=== PATIENT | female | born 1955 | race American Indian/Alaskan Native ===

== ENCOUNTER 2017-10-16 13:10 | Inpatient (IN) | payer MEDICAID ==
[2017-10-16] MEDS ORDERED: ASPIRIN PO ONE (13:38)
[2017-10-16] MEDS ORDERED: MORPHINE IV ONE (13:38)
[2017-10-16] MEDS ORDERED: ZOFRAN IV ONE (13:38)
[2017-10-16] MEDS ORDERED: NITRO-BID 2% TP ONE (13:38)
--- NOTE | 2017-10-16 13:44 | Emergency Department Report ---
HPI - General Chief Complaint: Chest Pain Time Seen by Provider: 10/16/17 13:28 - HPI HPI: Room 3 The patient is 62-year-old female presenting with a chief complaint of chest pain. The patient states yesterday she developed substernal chest pain/ pressure has been waxing and waning. Patient states she also developed numbness in her left neck shoulder and left upper extremity. The patient states her chest pressure is associated with shortness of breath and diaphoresis. Patient denies nausea/vomiting. This morning the pressure worsened. The patient gets her pain a score of 8/10. The patient last stress test occurred in 2014. 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, High Cholesterol - Surgical History Hx Cholecystectomy: Yes Hx Breast Surgery: Yes (Bilateral Mastectomy) Additional Surgical History: Bilateral Hip Replacememt, Partial Hysterectomy - Family History Family history: no significant - Social History Smoking Status: Former Smoker (none 20 years) Substance Use Type: Marijuana - Medications Home Medications: Home Medications Medication Instructions Recorded Confirmed Last Taken Type ALPRAZolam 1 mg PO TID PRN 02/10/15 02/10/15 Unknown History Aspirin BABY CHEW TAB 81 mg PO DAILY 02/10/15 02/10/15 Unknown History AtorvaSTATin 80 mg PO HS 02/10/15 02/10/15 Unknown History Bentyl 10 mg PO TID 02/10/15 02/10/15 Unknown History Lisinopril/Hydrochlorothiazide 1 tab PO DAILY 02/10/15 02/10/15 Unknown History HYDROcodone/APAP 5-325 [[place] 1 each PO Q4HR PRN #20 tablet 02/13/15 Unknown Rx 5/325] ED Review of Systems ROS: Stated complaint: CHEST PAIN Other details as noted in HPI Constitutional: diaphoresis Respiratory: shortness of breath Cardiovascular: chest pain Gastrointestinal: denies: nausea, vomiting Neurological: numbness Physical Exam - Physical Exam Physical Exam: GENERAL: The patient is well-developed well-nourished female lying on stretcher not appearing to be in acute distress. [] HEENT: Normocephalic. Atraumatic. Extraocular motions are intact. Patient has moist mucous membranes. NECK: Supple. Trachea midline CHEST/LUNGS: Clear to auscultation. There is no respiratory distress noted. HEART/CARDIOVASCULAR: Regular. There is no tachycardia. There is no gallop rub or murmur. ABDOMEN: Abdomen is soft, nontender. Patient has normal bowel sounds. There is no abdominal distention. SKIN: There is no rash. There is no edema. There is no diaphoresis. NEURO: The patient is awake, alert, and oriented. The patient is cooperative. The patient has normal speech. Patient complains of numbness in left upper extremity MUSCULOSKELETAL: There is no evidence of acute injury. ED Medical Decision Making - Lab Data Result diagrams: 10/16/17 14:20 10/16/17 14:20 Laboratory Tests 10/16/17 10/16/17 14:20 14:20 WBC 3.8 L RBC 5.08 H Hgb 13.6 Hct 42.8 MCV 84 MCH 27 L MCHC 32 RDW 15.8 H Plt Count 215 Lymph % (Auto) 47.3 H [place] % (Auto) 8.7 H Eos % (Auto) 2.1 Baso % (Auto) 1.2 Lymph # 1.8 [place] # 0.3 Eos # 0.1 Baso # 0.0 Seg Neutrophils % 40.7 Seg Neutrophils # 1.5 L Sodium 137 Potassium 4.0 Chloride 101.0 Carbon Dioxide 22 Anion Gap 18 BUN 11 Creatinine 0.7 Estimated GFR > 60 BUN/Creatinine Ratio 16 Glucose 78 Calcium 9.3 Troponin T < 0.010 - EKG Data -: EKG Interpreted by Me EKG shows normal: sinus rhythm Rate: bradycardia (51 bpm) - EKG Data When compared to previous EKG there are: previous EKG unavailable Interpretation: other (no ischemic changes seen) - Radiology Data Radiology results: image reviewed (chest x-ray) interpreted by me: Chest x-ray-no focal infiltrates, no pneumothorax - Differential Diagnosis ACS, GERD, pericarditis Critical care attestation.: If time is entered above; I have spent that time in minutes in the direct care of this critically ill patient, excluding procedure time. ED Disposition Clinical Impression: Chest pain Disposition: DC-09 OP ADMIT IP TO THIS HOSP Is pt being admited?: Yes Does the pt Need Aspirin: Yes Condition: Fair Instructions: Chest Pain (ED) Time of Disposition: 15:17 (Hospitalist notified (Dr Ace))
[2017-10-16] MEDS ORDERED: BENADRYL ONE (14:25)
[2017-10-16] MEDS ORDERED: CATAPRES ONE (14:31)
[2017-10-16] MEDS ORDERED: CATAPRES PO ONE (14:39)
[2017-10-16] MEDS ORDERED: BENADRYL IV ONE (14:39)
[2017-10-16 14:50] LABS: Basophils % (Auto) 1.2 % (0.0-1.8); Eosinophils # (Auto) 0.1 K/mm3 (0.0-0.4); Eosinophils % (Auto) 2.1 % (0.0-4.3); Hematocrit 42.8 % (30.3-42.9); Hemoglobin 13.6 gm/dl (10.1-14.3); Lymphocytes # (Auto) 1.8 K/mm3 (1.2-5.4); Lymphocytes % (Auto) 47.3 % (13.4-35.0); Mean Corpuscular HGB Conc 32 % (30-34); Mean Corpuscular Hemoglobin 27 pg (28-32); Mean Corpuscular Volume 84 fl (79-97); Monocytes # (Auto) 0.3 K/mm3 (0.0-0.8); Monocytes % (Auto) 8.7 % (0.0-7.3); Platelet Count 215 K/mm3 (140-440); Red Blood Count 5.08 M/mm3 (3.65-5.03); Red Cell Distribution Width 15.8 % (13.2-15.2)
[2017-10-16 15:09] LABS: BUN/Creatinine Ratio 16; Blood Urea Nitrogen 11 mg/dL (7-17); Calcium 9.3 mg/dL (8.4-10.2); Hemolysis Index 18
--- NOTE | 2017-10-16 15:20 | XRay Report ---
FINAL REPORT PROCEDURE: XR CHEST 1V AP TECHNIQUE: Chest radiograph anteroposterior view. CPT 67065 HISTORY: chest pain COMPARISON: No prior studies are available for comparison. FINDINGS: Heart: Normal. Mediastinum/Vessels: Normal. Lungs/Pleural space: No infiltrate, effusion, or pneumothorax. Bony thorax: No acute osseous abnormality. Life support devices: None. IMPRESSION: No radiographic evidence of acute cardiopulmonary abnormality.
--- NOTE | 2017-10-16 16:53 | History and Physical Report ---
History of Present Illness Date of examination: 10/16/17 Date of admission: 10/16/17 Chief complaint: Chief complaint: Left-sided chest pain History of present illness: ELZBIETA: 62-year-old female with history of hypertension COPD and questionable cerebrovascular accident in the past comes in for left-sided chest pain. His been going on since yesterday. Also radiate into her left neck and left upper extremity. Her chest. Pressure is associated with shortness of breath and diaphoresis. No palpitations. No nausea no vomiting. His been going on since yesterday. Evening this morning is worsened and he gives a score of 48 or 10 her last stress test was in 2014. Patient says he may have a left heart catheterization. No exacerbating or relieving factors. 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, High Cholesterol Surgical History Hx Cholecystectomy: Yes Hx Breast Surgery: Yes (Bilateral Mastectomy) Additional Surgical History: Bilateral Hip Replacememt, Partial Hysterectomy - Family History Family history: no significant - Social History Smoking Status: Former Smoker (none 20 years) Substance Use Type: Marijuana - Medications Home Medications: Home Medications Medication Instructions Recorded Confirmed Last Taken Type ALPRAZolam 1 mg PO TID PRN 02/10/15 02/10/15 Unknown History Aspirin BABY CHEW TAB 81 mg PO DAILY 02/10/15 02/10/15 Unknown History AtorvaSTATin 80 mg PO HS 02/10/15 02/10/15 Unknown History Bentyl 10 mg PO TID 02/10/15 02/10/15 Unknown History Lisinopril/Hydrochlorothiazide 1 tab PO DAILY 02/10/15 02/10/15 Unknown History HYDROcodone/APAP 5-325 [[place] 1 each PO Q4HR PRN #20 tablet 02/13/15 Unknown Rx 5/325] Review of Systems ROS: Stated complaint: CHEST PAIN Other details as noted in HPI Constitutional: diaphoresis Respiratory: shortness of breath Cardiovascular: chest pain Gastrointestinal: denies: nausea, vomiting Neurological: numbness 14 point review of systems done--- essentially negative Medications and Allergies Allergies Allergy/AdvReac Type Severity Reaction Status Date / Time cefdinir [From Omnicef] Allergy Hives Verified 02/10/15 14:49 Penicillins Allergy Unknown Verified 04/28/18 13:26 Home Medications Medication Instructions Recorded Confirmed Last Taken Type ALPRAZolam 1 mg PO TID PRN 02/10/15 10/16/17 Unknown History Aspirin BABY CHEW TAB 81 mg PO DAILY 02/10/15 10/16/17 Unknown History AtorvaSTATin 80 mg PO HS 02/10/15 10/16/17 Unknown History Bentyl 10 mg PO TID 02/10/15 10/16/17 Unknown History Lisinopril/Hydrochlorothiazide 1 tab PO DAILY 02/10/15 10/16/17 Unknown History HYDROcodone/APAP 5-325 [[place]ams 1 each PO Q4HR PRN #20 tablet 02/13/15 10/16/17 Unknown Rx 5/325] Hydrochlorothiazide [HCTZ] 25 mg PO QDAY 10/16/17 10/16/17 Unknown History Exam - Physical Exam Narrative exam: Lying in bed comfortably - Constitutional Vitals: Temp Pulse Resp BP Pulse Ox 98.2 F 53 L 12 172/82 95 10/16/17 14:38 10/16/17 15:15 10/16/17 15:15 10/16/17 15:15 10/16/17 15:15 General appearance: Present: no acute distress, well-nourished - EENT Eyes: Present: PERRL ENT: hearing intact, clear oral mucosa - Neck Neck: Present: supple, normal ROM - Respiratory Respiratory effort: normal Respiratory: bilateral: CTA - Cardiovascular Heart rate: 51 Rhythm: regular Heart Sounds: Present: S1 & S2. Absent: rub, click - Extremities Extremities: no ischemia, pulses intact, pulses symmetrical, No edema Peripheral Pulses: within normal limits - Abdominal General gastrointestinal: Present: soft, non-tender, non-distended, normal bowel sounds Female genitourinary: Present: normal - Integumentary Integumentary: Present: clear, warm, dry - Musculoskeletal Musculoskeletal: gait normal, strength equal bilaterally - Psychiatric Psychiatric: appropriate mood/affect, intact judgment & insight - Neurologic Neurologic: CNII-XII intact, moves all extremities - Allied Health Allied health notes reviewed: nursing, case management Results - Labs CBC & Chem 7: 10/16/17 14:20 10/16/17 14:20 Labs: Laboratory Last Values WBC 3.8 K/mm3 (4.5-11.0) L 10/16/17 14:20 RBC 5.08 M/mm3 (3.65-5.03) H 10/16/17 14:20 Hgb 13.6 gm/dl (10.1-14.3) 10/16/17 14:20 Hct 42.8 % (30.3-42.9) 10/16/17 14:20 MCV 84 fl (79-97) 10/16/17 14:20 MCH 27 pg (28-32) L 10/16/17 14:20 MCHC 32 % (30-34) 10/16/17 14:20 RDW 15.8 % (13.2-15.2) H 10/16/17 14:20 Plt Count 215 K/mm3 (140-440) 10/16/17 14:20 Lymph % (Auto) 47.3 % (13.4-35.0) H 10/16/17 14:20 [place] % (Auto) 8.7 % (0.0-7.3) H 10/16/17 14:20 Eos % (Auto) 2.1 % (0.0-4.3) 10/16/17 14:20 Baso % (Auto) 1.2 % (0.0-1.8) 10/16/17 14:20 Lymph # 1.8 K/mm3 (1.2-5.4) 10/16/17 14:20 [place] # 0.3 K/mm3 (0.0-0.8) 10/16/17 14:20 Eos # 0.1 K/mm3 (0.0-0.4) 10/16/17 14:20 Baso # 0.0 K/mm3 (0.0-0.1) 10/16/17 14:20 Seg Neutrophils % 40.7 % (40.0-70.0) 10/16/17 14:20 Seg Neutrophils # 1.5 K/mm3 (1.8-7.7) L 10/16/17 14:20 Sodium 137 mmol/L (137-145) 10/16/17 14:20 Potassium 4.0 mmol/L (3.6-5.0) 10/16/17 14:20 Chloride 101.0 mmol/L (98-107) 10/16/17 14:20 Carbon Dioxide 22 mmol/L (22-30) 10/16/17 14:20 Anion Gap 18 mmol/L 10/16/17 14:20 BUN 11 mg/dL (7-17) 10/16/17 14:20 Creatinine 0.7 mg/dL (0.7-1.2) 10/16/17 14:20 Estimated GFR > 60 ml/min 10/16/17 14:20 BUN/Creatinine Ratio 16 % 10/16/17 14:20 Glucose 78 mg/dL (65-100) 10/16/17 14:20 Calcium 9.3 mg/dL (8.4-10.2) 10/16/17 14:20 Troponin T < 0.010 ng/mL (0.00-0.029) 10/16/17 15:44 Short CBC 10/16/17 Range/Units 14:20 WBC 3.8 L (4.5-11.0) K/mm3 Hgb 13.6 (10.1-14.3) gm/dl Hct 42.8 (30.3-42.9) % Plt Count 215 (140-440) K/mm3 BMP 10/16/17 14:20 Sodium 137 Potassium 4.0 Chloride 101.0 Carbon Dioxide 22 BUN 11 Creatinine 0.7 Glucose 78 Calcium 9.3 Cardiac Enzymes 10/16/17 10/16/17 10/16/17 Range/Units 14:20 15:44 17:01 Troponin T < 0.010 < 0.010 < 0.010 (0.00-0.029) ng/mL - Imaging and Cardiology EKG: report reviewed (sinus bradycardia heart rate of 51/m no acute ST-T wave changes EKG interpreted by me) Assessment and Plan Advance Directives: Yes (full code) VTE prophylaxis?: Chemical Plan of care discussed with patient/family: Yes - Patient Problems (1) Chest pain Current Visit: Yes Status: Acute Qualifiers: Chest pain type: unspecified Qualified Code(s): R07.9 - Chest pain, unspecified Plan to address problem: Chest pain workup including serial cardiac enzymes and Lexiscan. Costochondritis ruled out Gerd in differential diagnosis (2) Hypertension Current Visit: No Status: Chronic Qualifiers: Hypertension type: essential hypertension Qualified Code(s): I10 - Essential (primary) hypertension Plan to address problem: Continue antihypertensives (3) Hyperlipidemia Current Visit: Yes Status: Chronic Qualifiers: Hyperlipidemia type: mixed hyperlipidemia Qualified Code(s): E78.2 - Mixed hyperlipidemia Plan to address problem: Continue statins (4) Generalized anxiety disorder Current Visit: Yes Status: Chronic Plan to address problem: Continue Xanax 1 mg 3 times a day (5) DVT prophylaxis Current Visit: Yes Status: Acute Plan to address problem: Lovenox/heparin subcutaneously GI prophylaxis in the form of famotidine
[2017-10-16] MEDS ORDERED: SODIUM CHLORIDE FLUSH SYRINGE 10 ML IV PRN (16:55)
[2017-10-16] MEDS ORDERED: PERCOCET 5/325 PO PRN (16:55)
[2017-10-16] MEDS ORDERED: TYLENOL PO PRN (16:55)
[2017-10-16] MEDS ORDERED: NON-FORMULARY (Alprazolam 1 MG) PO PRN (16:58)
[2017-10-16] MEDS: ZOFRAN IV PRN ×2 (17:43→22:11)
[2017-10-16] MEDS: ASPIRIN PO SCH (17:44)
[2017-10-16] MEDS ORDERED: BENTYL 10 MG PO SCH (20:00)
[2017-10-16] MEDS ORDERED: NON-FORMULARY (Atorvastatin 80 MG) PO SCH (22:00)
[2017-10-16] MEDS: XANAX PO PRN (22:03)
[2017-10-16] MEDS: MORPHINE IV PRN (22:12)
[2017-10-16] MEDS: HEPARIN SUB-Q SCH (22:13)
[2017-10-16] MEDS: SODIUM CHLORIDE FLUSH SYRINGE 10 ML IV SCH (22:13)
[2017-10-16] MEDS: BENTYL PO SCH (22:40)
[2017-10-17] MEDS: MORPHINE IV PRN ×4 (05:34→22:00)
[2017-10-17] MEDS: ZOFRAN IV PRN ×3 (05:36→22:01)
[2017-10-17 07:56] LABS: Basophils # (Auto) 0.1 K/mm3 (0.0-0.1); Basophils % (Auto) 1.6 % (0.0-1.8); Eosinophils # (Auto) 0.2 K/mm3 (0.0-0.4); Eosinophils % (Auto) 5.2 % (0.0-4.3); Hematocrit 37.9 % (30.3-42.9); Hemoglobin 12.4 gm/dl (10.1-14.3); Lymphocytes # (Auto) 1.8 K/mm3 (1.2-5.4); Lymphocytes % (Auto) 45.5 % (13.4-35.0); Mean Corpuscular HGB Conc 33 % (30-34); Mean Corpuscular Hemoglobin 27 pg (28-32); Mean Corpuscular Volume 82 fl (79-97); Monocytes # (Auto) 0.4 K/mm3 (0.0-0.8); Monocytes % (Auto) 10.3 % (0.0-7.3); Red Cell Distribution Width 15.8 % (13.2-15.2)
[2017-10-17] MEDS ORDERED: LEXISCAN IV ONE ×2 (08:10→08:19)
[2017-10-17 08:12] LABS: Alanine Aminotransferase 8 units/L (7-56); Albumin 3.3 g/dL (3.9-5); BUN/Creatinine Ratio 19; Blood Urea Nitrogen 19 mg/dL (7-17); Calcium 8.7 mg/dL (8.4-10.2); Hemolysis Index 2
[2017-10-17 09:01] LABS: Mean Platelet Volume 8.5 fl (6-12); Platelet Count 186 K/mm3 (140-440)
[2017-10-17] MEDS: HEPARIN SUB-Q SCH ×2 (10:48→21:26)
[2017-10-17] MEDS: ASPIRIN PO SCH (10:52)
[2017-10-17] MEDS: BENTYL PO SCH ×3 (11:08→19:39)
[2017-10-17] MEDS: COZAAR PO SCH (11:08)
[2017-10-17] MEDS: SODIUM CHLORIDE FLUSH SYRINGE 10 ML IV SCH ×2 (11:09→22:02)
--- NOTE | 2017-10-17 12:23 | Event Note ---
Date: 10/17/17 full c/s dictated d/w Dr. Paige check d-dimer
--- NOTE | 2017-10-17 12:56 | Progress Note ---
Assessment and Plan Assessment and plan: 62-year-old -[place] female with past medical history significant for TIA, bradycardia, hypertension presented to the emergency department with complaints of chest pain and shortness of breath that started 2 days ago. Chest pain or shortness of breath - Cardiac enzymes were negative, stress test was negative - Patient has some wheezing and will have treatment - Cardiology consulted, echocardiogram, be done outpatient if needed Hypertension - Controlled continue home medication Hyperlipidemia - Continue statin History of TIA - Currently stable DVT prophylaxis - heparin Disposition - Possible discharge tomorrow once symptoms are controlled History Interval history: Patient was seen and evaluated this morning, chest pain is getting better. Patient is complaining shortness of breath. Hospitalist Physical - Physical exam Narrative exam: Not in cardiopulmonary distress. The patient appeared well nourished and normally developed. Vital signs as documented. Head exam is unremarkable. No scleral icterus . Neck is without jugular venous distension, thyromegaly, or carotid bruits. Lungs scattered wheezes. Cardiac exam reveals regular rate and Rhythm. First and second heart sounds normal. No murmurs, rubs or gallops. Abdominal exam reveals normal bowel sounds, no masses, no organomegaly and no aortic enlargement. Extremities are nonedematous and both femoral and pedal pulses are normal. DOMESTIC HELPER: Alert and oriented 3. No focal weakness. - Constitutional Vitals: Temp Pulse Resp BP Pulse Ox 97.4 F L 58 L 20 146/65 100 10/17/17 09:12 10/17/17 11:08 10/17/17 11:06 10/17/17 11:08 10/17/17 09:12 General appearance: Present: no acute distress, well-nourished Results - Labs CBC & Chem 7: 10/17/17 07:10 10/17/17 07:10 Labs: Laboratory Last Values WBC 3.9 K/mm3 (4.5-11.0) L 10/17/17 07:10 RBC 4.60 M/mm3 (3.65-5.03) 10/17/17 07:10 Hgb 12.4 gm/dl (10.1-14.3) 10/17/17 07:10 Hct 37.9 % (30.3-42.9) 10/17/17 07:10 MCV 82 fl (79-97) 10/17/17 07:10 MCH 27 pg (28-32) L 10/17/17 07:10 MCHC 33 % (30-34) 10/17/17 07:10 RDW 15.8 % (13.2-15.2) H 10/17/17 07:10 Plt Count 186 K/mm3 (140-440) 10/17/17 07:10 Lymph % (Auto) 45.5 % (13.4-35.0) H 10/17/17 07:10 [place] % (Auto) 10.3 % (0.0-7.3) H 10/17/17 07:10 Eos % (Auto) 5.2 % (0.0-4.3) H 10/17/17 07:10 Baso % (Auto) 1.6 % (0.0-1.8) 10/17/17 07:10 Lymph # 1.8 K/mm3 (1.2-5.4) 10/17/17 07:10 [place] # 0.4 K/mm3 (0.0-0.8) 10/17/17 07:10 Eos # 0.2 K/mm3 (0.0-0.4) 10/17/17 07:10 Baso # 0.1 K/mm3 (0.0-0.1) 10/17/17 07:10 Seg Neutrophils % 37.4 % (40.0-70.0) L 10/17/17 07:10 Seg Neutrophils # 1.5 K/mm3 (1.8-7.7) L 10/17/17 07:10 Sodium 140 mmol/L (137-145) 10/17/17 07:10 Potassium 4.4 mmol/L (3.6-5.0) 10/17/17 07:10 Chloride 102.0 mmol/L (98-107) 10/17/17 07:10 Carbon Dioxide 26 mmol/L (22-30) 10/17/17 07:10 Anion Gap 16 mmol/L 10/17/17 07:10 BUN 19 mg/dL (7-17) H 10/17/17 07:10 Creatinine 1.0 mg/dL (0.7-1.2) 10/17/17 07:10 Estimated GFR > 60 ml/min 10/17/17 07:10 BUN/Creatinine Ratio 19 % 10/17/17 07:10 Glucose 84 mg/dL (65-100) 10/17/17 07:10 Hemoglobin A1c 5.9 % (4-6) 10/16/17 17:01 Calcium 8.7 mg/dL (8.4-10.2) 10/17/17 07:10 Total Bilirubin 0.30 mg/dL (0.1-1.2) 10/17/17 07:10 AST 12 units/L (5-40) 10/17/17 07:10 ALT 8 units/L (7-56) 10/17/17 07:10 Alkaline Phosphatase 89 units/L (35-129) 10/17/17 07:10 Troponin T < 0.010 ng/mL (0.00-0.029) 10/17/17 07:10 Total Protein 6.0 g/dL (6.3-8.2) L 10/17/17 07:10 Albumin 3.3 g/dL (3.9-5) L 10/17/17 07:10 Albumin/Globulin Ratio 1.2 % 10/17/17 07:10
[2017-10-17] MEDS: DUONEB *Not for PRN Use IH SCH ×2 (16:07→19:18)
[2017-10-17] MEDS: XANAX PO PRN (20:42)
--- NOTE | 2017-10-17 23:55 | Consultation ---
CARDIOLOGY CONSULTATION REFERRING PHYSICIAN: Dr. Ace. REASON FOR CONSULTATION: Advice and opinion regarding chest pain. HISTORY OF PRESENT ILLNESS: The patient is a pleasant 62-year-old -[place] female, who is a retired nurse with history of hypertension, emphysema, questionable CVA and DVT in the past, presents here with shortness of breath, chest pain radiating to the left shoulder, sharp and pressure-like. No exacerbating or alleviating factors. It is not positional. Currently, seen on telemetry. [facility] has done stress test this morning. She denies any syncope or presyncope. 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 Feels good now. She has emphysema of unclear etiology. Her primary care physician is ____. PAST MEDICAL HISTORY: As aforementioned, smoked many years ago. PAST SURGICAL HISTORY: Includes bilateral mastectomy, bilateral hip replacement, partial hysterectomy. Other medical history includes TIA, colitis, osteoporosis and hyperlipidemia. MEDICATIONS: Inpatient and outpatient medications reviewed. ALLERGIES: ALLERGIC TO OMNICEF AND PENICILLIN. PHYSICAL EXAMINATION: VITAL SIGNS: Blood pressure is 140/60. Tele reveals sinus rhythm, had some sinus bradycardia during sleep in the 40s. No high-degree AV block or SA node dysfunction noted. O2 sat is 98% on room air. GENERAL: This is a middle-aged -[place] female in no apparent distress, oriented x 3. HEENT: Sclerae are anicteric. NECK: Supple. No mass or JVD. CHEST: Mild bibasilar wheezing. No rales, no rhonchi. EXTREMITIES: No cyanosis, clubbing, edema. Good peripheral pulses. SKIN: Intact. No rashes. LABORATORY DATA: Platelet count is 186. WBC is 3.9, hemoglobin 12.4, hematocrit 37.9. We have ordered a D-dimer, BMP is normal. Cardiac enzymes are negative x 2. EKG reveals sinus bradycardia, no acute ST segment shift. I reviewed her stress test, grossly technically somewhat difficult, but no evidence of a significant degree of ischemia or prior infarction, normal LV function. No TID. ASSESSMENT: In summary, the patient is a pleasant 62-year-old -[place] female: 1. Chest pain with typical and atypical features, now resolved. Cardiac enzymes negative x 2. Nuclear stress test technically difficult, but grossly without evidence of ischemia. Normal LV function. 2. History of cerebrovascular accident. 3. History of deep venous thrombosis. 4. Hypertension. 5. Hyperlipidemia. At this point, she is clinically stable, although she does have minor bibasilar wheezing. Would initiate pulmonary nebulizer therapy, consider pulmonary consultation. We will watch her rhythm overnight. We will check an echocardiogram in the office. She appears to be clinically stable. Follow up on D-dimer. She does have a history of DVT, but no other clinical factors suggestive of pulmonary embolus. We will watch overnight. Consider a.m. discharge if she remains stable. Thank you for this consultation. I will be happy to follow along with you. JOB# [id number] LULY/CLAUDIA
[2017-10-18] MEDS: DUONEB *Not for PRN Use IH SCH ×4 (01:08→22:04)
[2017-10-18] MEDS: MORPHINE IV PRN ×4 (03:55→21:36)
[2017-10-18] MEDS: ZOFRAN IV PRN ×3 (09:05→21:36)
[2017-10-18] MEDS: ASPIRIN PO SCH (09:05)
[2017-10-18] MEDS: BENTYL PO SCH ×3 (09:05→21:36)
--- NOTE | 2017-10-18 10:00 | Progress Note ---
Assessment and Plan Assessment: Chest pain - with typical and atypical features, AMI ruled out, nuclear stress test TDS but grossly without evidence of ischemia, normal LV function Sinus bradycardia - improving; asymptomatic HTN HLP H/o CVA H/o DVT H/o TIA Elevated DDimer - chest CTA negative for PE Plan: Chest CTA with contrast this AM showed emphysematous changes, no evidence for PE. Obtain echo. Obtain thyroid profile. Recommend pulmonary consultation per primary. The patient has been seen in conjunction with Dr. Jacobsen who agrees with the assessment and plan of care. Subjective Date of service: 10/18/17 Principal diagnosis: cp Interval history: pt resting in bed, still c/o intermittent midsternal stabbing pain which radiates into her upper back and states she heard herself wheezing this morning. Objective Last Vital Signs Temp 97.8 F 10/18/17 07:49 Pulse 49 L 10/18/17 09:30 Resp 20 10/18/17 09:30 BP 131/52 10/18/17 07:49 Pulse Ox 96 10/18/17 07:51 - Physical Examination General: No Apparent Distress HEENT: Positive: PERRL, Normocephaly, Mucus Membranes Moist Neck: Positive: neck supple, trachea midline Cardiac: Positive: Regular Rhythm, S1/S2 Lungs: Positive: clear to auscultation Neuro: Positive: Grossly Intact, Cranial Nerve 2-12 Intact Abdomen: Positive: Soft. Negative: Tender Skin: Positive: Clear. Negative: Rash, Wound Musculoskeletal: No Fluid Collection, No Pain, Normal Range of Motion Extremities: Absent: edema - Imaging and Cardiology EKG: report reviewed (sinus bradycardia heart rate of 51/m no acute ST-T wave changes EKG interpreted by me) Pharmacologic stress test: report reviewed - Telemetry EKG Rhythm: Sinus Bradycardia
[2017-10-18] MEDS: HEPARIN SUB-Q SCH ×2 (10:30→21:35)
[2017-10-18] MEDS: SODIUM CHLORIDE FLUSH SYRINGE 10 ML IV SCH (10:38)
[2017-10-18] MEDS: COZAAR PO SCH ×2 (10:42→19:05)
--- NOTE | 2017-10-18 11:35 | Cat Scan Report ---
CTA CHEST: HISTORY: chest pain. COMPARISON: 02/11/15. TECHNIQUE: Helical CT in 1.25mm intervals following IV contrast. Pulmonary embolus protocol. Sagittal and coronal reformatted images. Rotational MIP images. FINDINGS: Contrast bolus is satisfactory. No pulmonary embolus is identified. Thyroid gland: 1.3 cm left thyroid hypodensity is unchanged and probably represents a cyst. The right thyroid lobe remains normal. Tracheobronchial tree: Normal. Esophagus: Normal. Heart: Mild cardiomegaly is stable. Pericardium: Normal. Mediastinum: Normal. Lung Richards: Moderate centrilobular emphysematous changes in the upper lung zones are stable. Mild bibasilar atelectatic changes are noted. No evidence for mass or infiltrate. Pleural Spaces: Normal. Musculoskeletal: Mild thoracic spondylosis. No evidence for suspicious bony lesion or fracture. Bilateral breast prostheses are intact. IMPRESSION: No evidence for pulmonary embolus. Emphysematous changes. Mild cardiomegaly. Mild bibasilar atelectasis.
--- NOTE | 2017-10-18 15:07 | Progress Note ---
Assessment and Plan Assessment and plan: 62-year-old -Portuguese female with past medical history significant for TIA, bradycardia, hypertension presented to the emergency department with complaints of chest pain and shortness of breath that started 2 days ago. Chest pain or shortness of breath - Cardiac enzymes were negative, stress test was negative patient still has chest pain and SOB - Cardiology consulted and recommend echo, pulmonary consult for emphysema Emphysema - Breathing treatment - Pulmonary consult - CTA negative for PE Hypertension - Controlled continue home medication Hyperlipidemia - Continue statin History of TIA - Currently stable DVT prophylaxis - heparin Disposition -continue inpatient care, f/u with pulmonary. History Interval history: Patient was seen and evaluated this morning, chest pain is getting better. Patient is complaining shortness of breath and chest pain. Hospitalist Physical - Physical exam Narrative exam: Not in cardiopulmonary distress. The patient appeared well nourished and normally developed. Vital signs as documented. Head exam is unremarkable. No scleral icterus . Neck is without jugular venous distension, thyromegaly, or carotid bruits. Lungs scattered wheezes. Cardiac exam reveals regular rate and Rhythm. First and second heart sounds normal. No murmurs, rubs or gallops. Abdominal exam reveals normal bowel sounds, no masses, no organomegaly and no aortic enlargement. Extremities are nonedematous and both femoral and pedal pulses are normal. COOK HELPER PASTRY: Alert and oriented 3. No focal weakness. - Constitutional Vitals: Temp Pulse Resp BP Pulse Ox 97.8 F 50 L 20 131/52 96 10/18/17 07:49 10/18/17 13:45 10/18/17 13:45 10/18/17 07:49 10/18/17 07:51 General appearance: Present: no acute distress, well-nourished Results - Labs CBC & Chem 7: 10/17/17 07:10 10/17/17 07:10 Labs: Laboratory Last Values WBC 3.9 K/mm3 (4.5-11.0) L 10/17/17 07:10 RBC 4.60 M/mm3 (3.65-5.03) 10/17/17 07:10 Hgb 12.4 gm/dl (10.1-14.3) 10/17/17 07:10 Hct 37.9 % (30.3-42.9) 10/17/17 07:10 MCV 82 fl (79-97) 10/17/17 07:10 MCH 27 pg (28-32) L 10/17/17 07:10 MCHC 33 % (30-34) 10/17/17 07:10 RDW 15.8 % (13.2-15.2) H 10/17/17 07:10 Plt Count 186 K/mm3 (140-440) 10/17/17 07:10 Lymph % (Auto) 45.5 % (13.4-35.0) H 10/17/17 07:10 [place] % (Auto) 10.3 % (0.0-7.3) H 10/17/17 07:10 Eos % (Auto) 5.2 % (0.0-4.3) H 10/17/17 07:10 Baso % (Auto) 1.6 % (0.0-1.8) 10/17/17 07:10 Lymph # 1.8 K/mm3 (1.2-5.4) 10/17/17 07:10 [place] # 0.4 K/mm3 (0.0-0.8) 10/17/17 07:10 Eos # 0.2 K/mm3 (0.0-0.4) 10/17/17 07:10 Baso # 0.1 K/mm3 (0.0-0.1) 10/17/17 07:10 Seg Neutrophils % 37.4 % (40.0-70.0) L 10/17/17 07:10 Seg Neutrophils # 1.5 K/mm3 (1.8-7.7) L 10/17/17 07:10 D-Dimer 348.49 ng/mlDDU (0-234) H 10/17/17 13:38 Sodium 140 mmol/L (137-145) 10/17/17 07:10 Potassium 4.4 mmol/L (3.6-5.0) 10/17/17 07:10 Chloride 102.0 mmol/L (98-107) 10/17/17 07:10 Carbon Dioxide 26 mmol/L (22-30) 10/17/17 07:10 Anion Gap 16 mmol/L 10/17/17 07:10 BUN 19 mg/dL (7-17) H 10/17/17 07:10 Creatinine 1.0 mg/dL (0.7-1.2) 10/17/17 07:10 Estimated GFR > 60 ml/min 10/17/17 07:10 BUN/Creatinine Ratio 19 % 10/17/17 07:10 Glucose 84 mg/dL (65-100) 10/17/17 07:10 Hemoglobin A1c 5.9 % (4-6) 10/16/17 17:01 Calcium 8.7 mg/dL (8.4-10.2) 10/17/17 07:10 Total Bilirubin 0.30 mg/dL (0.1-1.2) 10/17/17 07:10 AST 12 units/L (5-40) 10/17/17 07:10 ALT 8 units/L (7-56) 10/17/17 07:10 Alkaline Phosphatase 89 units/L (35-129) 10/17/17 07:10 Troponin T < 0.010 ng/mL (0.00-0.029) 10/17/17 07:10 Total Protein 6.0 g/dL (6.3-8.2) L 10/17/17 07:10 Albumin 3.3 g/dL (3.9-5) L 10/17/17 07:10 Albumin/Globulin Ratio 1.2 % 10/17/17 07:10
[2017-10-18] MEDS: XANAX PO PRN (21:36)
[2017-10-19] MEDS: DUONEB *Not for PRN Use IH SCH ×4 (01:56→21:37)
[2017-10-19] MEDS: ZOFRAN IV PRN ×3 (04:35→15:34)
[2017-10-19] MEDS: MORPHINE IV PRN ×3 (04:35→15:34)
[2017-10-19] MEDS: COZAAR PO SCH (09:17)
[2017-10-19] MEDS: BENTYL PO SCH ×2 (09:18→15:34)
[2017-10-19] MEDS: ASPIRIN PO SCH (09:18)
[2017-10-19] MEDS: HEPARIN SUB-Q SCH (09:19)
[2017-10-19] MEDS: SODIUM CHLORIDE FLUSH SYRINGE 10 ML IV SCH ×2 (09:28→14:48)
--- NOTE | 2017-10-19 10:18 | Progress Note ---
Assessment and Plan Assessment: Chest pain - with typical and atypical features, AMI ruled out, nuclear stress test TDS but grossly without evidence of ischemia, normal LV function Sinus bradycardia - improving; asymptomatic; thyroid profile WNL Left sided facial tingling / LUE weakness HTN HLP H/o CVA H/o DVT H/o TIA Elevated DDimer - chest CTA negative for PE Plan: Echo reviewed - EF 55-60%, impaired relaxation, LA mildly dilated. Reduce ASA to 81mg daily. Optimize anti-hypertensive regimen - cont losartan and resume home HCTZ 25mg daily. Await pulmonary consultation. For head CT today per primary to further evaluate left sided facial tingling and LUE weakness. The patient has been seen in conjunction with Dr. Jacobsen who agrees with the assessment and plan of care. Subjective Date of service: 10/19/17 Principal diagnosis: cp Interval history: pt resting in bed, c/o labile BPs overnight and some left sided facial tingling and left upper extremity weakness this AM. no complaints of chest pain overnight. Objective Last Vital Signs Temp 98.2 F 10/19/17 07:40 Pulse 58 L 10/19/17 09:17 Resp 18 10/19/17 07:56 BP 152/56 10/19/17 09:17 Pulse Ox 98 10/19/17 07:59 - Physical Examination General: No Apparent Distress HEENT: Positive: PERRL, Normocephaly, Mucus Membranes Moist Neck: Positive: neck supple, trachea midline Cardiac: Positive: Reg Rate and Rhythm, S1/S2 Lungs: Positive: clear to auscultation Neuro: Positive: Grossly Intact, Cranial Nerve 2-12 Intact Abdomen: Positive: Soft. Negative: Tender Skin: Positive: Clear. Negative: Rash, Wound Musculoskeletal: No Fluid Collection, No Pain, Normal Range of Motion Extremities: Absent: edema - Imaging and Cardiology EKG: report reviewed (sinus bradycardia heart rate of 51/m no acute ST-T wave changes EKG interpreted by me) - Telemetry EKG Rhythm: Sinus Rhythm
[2017-10-19] MEDS ORDERED: HCTZ PO SCH (11:00)
--- NOTE | 2017-10-19 12:32 | Discharge Summary ---
Providers - Providers Date of Admission: 10/16/17 18:30 Attending physician: BRENDAN BRO MD 10/17/17 10:59 Consult to Physician [CONS] Routine Comment: Consulting Provider: PADMAJA ELLIS Physician Instructions: [facility] Reason For Exam: chest pain, SOB 10/18/17 14:59 Consult to Physician [CONS] Routine Comment: Consulting Provider: DIONISIO SAM Physician Instructions: still complains SOB despite -ve stress and CTA Reason For Exam: emphysema, SOB Primary care physician: [employer] HELPER Hospitalization Reason for admission: CHEST PAIN Condition: Stable Hospital course: 62-year-old female with history of hypertension COPD and questionable cerebrovascular accident in the past comes in for left-sided chest pain. His been going on since yesterday. Also radiate into her left neck and left upper extremity. Her chest. Pressure is associated with shortness of breath and diaphoresis. No palpitations. No nausea no vomiting. His been going on since yesterday. Evening this morning is worsened and he gives a score of 48 or 10 her last stress test was in 2014. Patient says she may have a left heart catheterization. No exacerbating or relieving factors. Patient followed with cardiology stress test was done and negative. Patient had elevated D.Dimer and was noted to have no Pulmonary embolism or DVT but Emphesma. She denies hx of tobacco or family hx of pulmonary disease. Pulmonary was consulted to evaluate. ASA was increased to full dose and patient had recommendation to follow up with oncologist and kit assembler due to elevated d.dimer and hx of cancer. She verbalized understanding. We also recommended following with GI for GERD. Furthe cardiology work up revealed. Echo also revealed mild dilatation of the ascending aorta. I explained to her that she will need F/U Echo on an annual basis. She is also concerned regarding her wide pulse pressure. I told her that the cause is hypertension and atherosclerosis. Discharge Diagnosis Chest pain Secondary to zenkeR Zenker Diverticulm Emphysema Hypertension Hyperlipidemia TIA H/o CVA H/o DVT H/o cervuical cancer Elevated DDimer - chest CTA negative for PE Disposition: TO HOME OR SELFCARE Time spent for discharge: 35 mins Core Measure Documentation - Palliative Care Palliative Care/ Comfort Measures: Not Applicable - Core Measures Any of the following diagnoses?: none - VTE Discharge Requirements Deep Vein Thrombosis/Pulmonary Embolism Present on Admission: No Exam - Physical Exam Narrative exam: VITAL SIGNS: Reviewed. GENERAL: The patient appeared well nourished and normally developed. Vital signs as documented. HEAD: No signs of head trauma. EYES: Pupils are equal. Extraocular motions intact. EARS: Hearing grossly intact. MOUTH: Oropharynx is normal. NECK: No adenopathy, no JVD. CHEST: Chest with clear breath sounds bilaterally. No wheezes, rales, or rhonchi. CARDIAC: Regular rate and rhythm. S1 and S2, without murmurs, gallops, or rubs. VASCULAR: No Edema. Peripheral pulses normal and equal in all extremities. ABDOMEN: Soft, without detectable tenderness. No sign of distention. No rebound or guarding, and no masses palpated. Bowel Sounds normal. MUSCULOSKELETAL: Good range of motion of all major joints. Extremities without clubbing, cyanosis or edema. NEUROLOGIC EXAM: Alert and oriented x 3. No focal sensory or strength deficits. Speech normal. Follows commands. PSYCHIATRIC: Mood normal. SKIN: No rash or lesions. - Constitutional Vitals: Temp Pulse Resp BP Pulse Ox 98.2 F 58 L 18 152/56 98 10/19/17 07:40 10/19/17 09:17 10/19/17 07:56 10/19/17 09:17 10/19/17 07:59 Plan Activity: advance as tolerated, fall precautions Diet: low cholesterol Special Instructions: record daily weights, record daily BP diary, record blood sugar diary Follow up with: PRIMARY CARE, [Primary Care Provider] - 7 Days DIONISIO SAM MD [Staff Physician] - 7 Days PADMAJA ELLIS MD [Staff Physician] - 7 Days Prescriptions: ALBUTEROL Inhaler [ProAir HFA Inhaler] 2 puff IH QID PRN #1 inhalation PRN Reason: Shortness Of Breath Aspirin 325 mg PO DAILY #30 tablet Dicyclomine [Bentyl] 10 mg PO TID #14 capsule Pantoprazole [Protonix TAB] 40 mg PO QDAY #30 tablet
--- NOTE | 2017-10-19 13:30 | Cat Scan Report ---
CT HEAD WITHOUT CONTRAST: HISTORY: CVA. TECHNIQUE: Sequential 2.5mm CT images. COMPARISON: none. FINDINGS: Cerebral Parenchyma: Within normal limits. Cerebellum: Within normal limits. Brainstem: Within normal limits. Ventricles: Normal. Sella: Normal. Extra-axial spaces: Normal. Basal Cisterns: Normal. Intracranial Hemorrhage: None. Midline Shift: None. Calvarium: Normal. Sinuses: Normal. Mastoid Air Cells: Normal. Visualized Orbits: Normal. IMPRESSION: Cranial CT scan within normal limits.
[2017-10-19 17:32] VITALS: BP 147/70
--- NOTE | 2017-10-19 17:33 | Progress Note ---
History Interval history: Patient seen and examined in no acute distress. Patient reports improved symptoms, this morning had complaints of left sided numbness which has since resolved, was associated with a headache of 5/10 also resolved with no associated blurry vision. Hospitalist Physical - Constitutional Vitals: Temp Pulse Resp BP Pulse Ox 98.2 F 60 18 152/56 98 10/19/17 07:40 10/19/17 15:11 10/19/17 15:11 10/19/17 09:17 10/19/17 10:00 General appearance: Present: no acute distress, well-nourished Results - Labs CBC & Chem 7: 10/17/17 07:10 10/17/17 07:10 Labs: Laboratory Last Values WBC 3.9 K/mm3 (4.5-11.0) L 10/17/17 07:10 RBC 4.60 M/mm3 (3.65-5.03) 10/17/17 07:10 Hgb 12.4 gm/dl (10.1-14.3) 10/17/17 07:10 Hct 37.9 % (30.3-42.9) 10/17/17 07:10 MCV 82 fl (79-97) 10/17/17 07:10 MCH 27 pg (28-32) L 10/17/17 07:10 MCHC 33 % (30-34) 10/17/17 07:10 RDW 15.8 % (13.2-15.2) H 10/17/17 07:10 Plt Count 186 K/mm3 (140-440) 10/17/17 07:10 Lymph % (Auto) 45.5 % (13.4-35.0) H 10/17/17 07:10 [place] % (Auto) 10.3 % (0.0-7.3) H 10/17/17 07:10 Eos % (Auto) 5.2 % (0.0-4.3) H 10/17/17 07:10 Baso % (Auto) 1.6 % (0.0-1.8) 10/17/17 07:10 Lymph # 1.8 K/mm3 (1.2-5.4) 10/17/17 07:10 [place] # 0.4 K/mm3 (0.0-0.8) 10/17/17 07:10 Eos # 0.2 K/mm3 (0.0-0.4) 10/17/17 07:10 Baso # 0.1 K/mm3 (0.0-0.1) 10/17/17 07:10 Seg Neutrophils % 37.4 % (40.0-70.0) L 10/17/17 07:10 Seg Neutrophils # 1.5 K/mm3 (1.8-7.7) L 10/17/17 07:10 D-Dimer 348.49 ng/mlDDU (0-234) H 10/17/17 13:38 Sodium 140 mmol/L (137-145) 10/17/17 07:10 Potassium 4.4 mmol/L (3.6-5.0) 10/17/17 07:10 Chloride 102.0 mmol/L (98-107) 10/17/17 07:10 Carbon Dioxide 26 mmol/L (22-30) 10/17/17 07:10 Anion Gap 16 mmol/L 10/17/17 07:10 BUN 19 mg/dL (7-17) H 10/17/17 07:10 Creatinine 1.0 mg/dL (0.7-1.2) 10/17/17 07:10 Estimated GFR > 60 ml/min 10/17/17 07:10 BUN/Creatinine Ratio 19 % 10/17/17 07:10 Glucose 84 mg/dL (65-100) 10/17/17 07:10 Hemoglobin A1c 5.9 % (4-6) 10/16/17 17:01 Calcium 8.7 mg/dL (8.4-10.2) 10/17/17 07:10 Total Bilirubin 0.30 mg/dL (0.1-1.2) 10/17/17 07:10 AST 12 units/L (5-40) 10/17/17 07:10 ALT 8 units/L (7-56) 10/17/17 07:10 Alkaline Phosphatase 89 units/L (35-129) 10/17/17 07:10 Troponin T < 0.010 ng/mL (0.00-0.029) 10/17/17 07:10 Total Protein 6.0 g/dL (6.3-8.2) L 10/17/17 07:10 Albumin 3.3 g/dL (3.9-5) L 10/17/17 07:10 Albumin/Globulin Ratio 1.2 % 10/17/17 07:10 TSH 0.919 mlU/mL (0.270-4.200) 10/18/17 13:27 Free T4 1.37 ng/dL (0.76-1.46) 10/18/17 13:27
--- NOTE | 2017-10-19 17:33 | Consultation ---
History of Present Illness Consult date: 10/19/17 Requesting physician: BRENDAN BRO Reason for consult: COPD Medications and Allergies Allergies Allergy/AdvReac Type Severity Reaction Status Date / Time cefdinir [From Omnicef] Allergy Hives Verified 02/10/15 14:49 Penicillins Allergy Unknown Verified 10/16/17 13:26 Home Medications Medication Instructions Recorded Confirmed Last Taken Type ALPRAZolam 1 mg PO TID PRN 02/10/15 10/16/17 Unknown History AtorvaSTATin 80 mg PO HS 02/10/15 10/16/17 Unknown History Bentyl 10 mg PO TID 02/10/15 10/16/17 Unknown History Lisinopril/Hydrochlorothiazide 1 tab PO DAILY 02/10/15 10/16/17 Unknown History HYDROcodone/APAP 5-325 [[place] 1 each PO Q4HR PRN #20 tablet 02/13/15 10/16/17 Unknown Rx 5-325 mg TAB] Hydrochlorothiazide [HCTZ] 25 mg PO QDAY 10/16/17 10/16/17 Unknown History Aspirin 325 mg PO DAILY #30 tablet 10/19/17 Unknown Rx Dicyclomine [Bentyl] 10 mg PO TID #14 capsule 10/19/17 Unknown Rx Active Meds: Active Medications Acetaminophen (Tylenol) 650 mg PO Q4H PRN PRN Reason: Pain MILD(1-3)/Fever >100.5/[place] Albuterol/Ipratropium (Duoneb *Not For Prn Use*) 1 ampul IH Q6HRT [facility] Last Admin: 10/19/17 15:10 Dose: 1 ampul Alprazolam (Xanax) 1 mg PO TID PRN PRN Reason: Anxiety Last Admin: 10/18/17 21:36 Dose: 1 mg Aspirin (Baby Aspirin) 81 mg PO QDAY [facility] Atorvastatin Calcium (Lipitor) 80 mg PO QHS [facility] Last Admin: 10/18/17 21:37 Dose: 80 mg Dicyclomine HCl (Bentyl) 10 mg PO TID [facility] Last Admin: 10/19/17 15:34 Dose: 10 mg Heparin Sodium (Porcine) (Heparin) 5,000 unit SUB-Q Q12HR [facility] Last Admin: 10/19/17 09:19 Dose: 5,000 unit Hydrochlorothiazide (Hctz) 25 mg PO QDAY [facility] Last Admin: 10/19/17 15:34 Dose: 25 mg Losartan Potassium (Cozaar) 100 mg PO QDAY [facility] Last Admin: 10/19/17 09:17 Dose: 100 mg Morphine Sulfate (Morphine) 2 mg IV Q4H PRN PRN Reason: Pain, Moderate (4-6) Last Admin: 10/19/17 15:34 Dose: 2 mg Ondansetron HCl (Zofran) 4 mg IV Q4H PRN PRN Reason: Nausea And Vomiting Last Admin: 10/19/17 15:34 Dose: 4 mg Oxycodone/Acetaminophen (Percocet 5/325) 1 tab PO Q6H PRN PRN Reason: Pain, Moderate (4-6) Last Admin: 10/17/17 19:39 Dose: 1 tab Sodium Chloride (Sodium Chloride Flush Syringe 10 Ml) 10 ml IV BID [facility] Last Admin: 10/19/17 14:48 Dose: Not Given Sodium Chloride (Sodium Chloride Flush Syringe 10 Ml) 10 ml IV PRN PRN PRN Reason: LINE FLUSH Physical Examination Vital signs: Vital Signs Pulse Resp Pulse Ox 51 L 9 L 94 10/16/17 14:18 10/16/17 14:18 10/16/17 14:18 Results - Laboratory Findings CBC and BMP: 10/17/17 07:10 10/17/17 07:10 PT/INR, D-dimer D-Dimer 348.49 ng/mlDDU (0-234) H 10/17/17 13:38 Abnormal lab findings: Abnormal Labs 10/16/17 10/17/17 10/17/17 14:20 07:10 07:10 WBC 3.8 L 3.9 L RBC 5.08 H MCH 27 L 27 L RDW 15.8 H 15.8 H Lymph % (Auto) 47.3 H 45.5 H [place] % (Auto) 8.7 H 10.3 H Eos % (Auto) 5.2 H Seg Neutrophils % 37.4 L Seg Neutrophils # 1.5 L 1.5 L D-Dimer BUN 19 H Total Protein 6.0 L Albumin 3.3 L 10/17/17 13:38 WBC RBC MCH RDW Lymph % (Auto) [place] % (Auto) Eos % (Auto) Seg Neutrophils % Seg Neutrophils # D-Dimer 348.49 H BUN Total Protein Albumin
--- NOTE | 2017-10-19 23:04 | Treadmill Report ---
THALLIUM STRESS TEST Left ventricular chamber size is within normal. Perfusion study demonstrates normal apical thinning, otherwise homogeneous uptake of the tracer in all segments, no significant perfusion defects identified. Gated analysis demonstrates normal left ventricular systolic function, ejection fraction greater than 70%. CONCLUSION: Normal myocardial perfusion study. JOB# [id number] CA/NTS
[2017-10-20] MEDS ORDERED: BABY ASPIRIN PO SCH (10:00)
--- NOTE | 2017-10-20 11:40 | Vascular Lab Report ---
LOWER EXTREMITY VENOUS DUPLEX: REASON FOR EXAM: Deep venous thrombosis. COMMENTS ON THE RIGHT: All veins visualized are freely compressible without evidence of internal echogenicity. Flow is spontaneous and phasic throughout. COMMENTS ON THE LEFT: All veins visualized are freely compressible without evidence of internal echogenicity. Flow is spontaneous and phasic throughout. IMPRESSION: No evidence of acute or chronic deep venous thrombosis in either lower extremity.
== END 2017-10-19 20:01 | disposition home or self-care (01) | DRG 392 ==
LOC: ED 13:10 → 4A 18:30
PROVIDERS: ADMIT Internal Medicine; ATTEND Internal Medicine
DX: K22.5 Diverticulum of esophagus, acquired (principal); R00.1 Bradycardia, unspecified; J43.9 Emphysema, unspecified; I10 Essential (primary) hypertension; R06.02 Shortness of breath; Z88.0 Allergy status to penicillin; Z88.8 Allergy status to other drugs, medicaments and biological substances; Z86.73 Personal history of transient ischemic attack (TIA), and cerebral infarction without residual deficits; Z96.643 Presence of artificial hip joint, bilateral; Z87.891 Personal history of nicotine dependence; Z90.711 Acquired absence of uterus with remaining cervical stump; M81.0 Age-related osteoporosis without current pathological fracture; Z90.13 Acquired absence of bilateral breasts and nipples; Z79.82 Long term (current) use of aspirin; F41.1 Generalized anxiety disorder
CPT/HCPCS: 36415; 70450; 71045; 71275; 78452; 80048; 80053; 83036; 84439; 84443; 84484; 85025; 85379; 93005; 93010; 93017; 93306; 93970; 94640; 94760; 96374; 96375; A9270-GY; A9502; J1200; J1644; J2270; J2405; J2785; Q9967